=== PATIENT | male | born 1940 | race Caucasian/White ===

== ENCOUNTER 2020-01-16 09:40 | Inpatient (IN) | payer MEDICARE, BC ==
[~2020-01-16] VITALS: Ht 172.7 cm; Wt 98.7 kg
[~2020-01-16 09:40] MED LIST: ALLO100 PO; ASCO500 PO; DEMADEX PO; DIGO.125 PO; DILT180 PO; DOCU100 PO; DULERA 100 MCG/13 GM INH; FERR325 PO; FLORADIL; FLUT44OIA INH; FORM12IH INH; FURO20 PO; Florastor250 MG INH; LEVO750 PO; MONT4 PO; PSYL5.85P PO; TAZTIA XT360 MG PO; Ventolin Soln3 ML INH; WARF1 PO; WARF5 PO
[2020-01-16 10:18] LABS: BASOPHILS ABSOLUTE AUTO 0.06 K/mm3 (0.00-0.23); BASOPHILS PERCENT AUTO 0 % (0-2); EOSINOPHILS ABSOLUTE AUTO 0.02 K/mm3 (0.00-0.68); EOSINOPHILS PERCENT AUTO 0 % (0-6); Hemoglobin 14.4 g/dL (13.5-17.5); IMMATURE GRAN ABSOLUTE AUTO 0.29 K/mm3 (0.00-0.10); IMMATURE GRAN PERCENT AUTO 1 % (0-1); LYMPHOCYTES ABSOLUTE AUTO 0.47 K/mm3 (0.84-5.20); LYMPHOCYTES PERCENT AUTO 2 % (21-46); MONOCYTES ABSOLUTE AUTO 2.52 K/mm3 (0.16-1.47); MONOCYTES PERCENT AUTO 9 % (4-13); Mean Corpuscular HGB 28.7 pg (26.0-34.0); Mean Corpuscular HGB Conc 31.3 g/dL (31.5-36.5); Mean Corpuscular Volume 92 fL (80-100); Mean Platelet Volume 9.9 fL (9.1-12.4); NEUTROPHILS ABSOLUTE AUTO 25.71 K/mm3 (1.96-9.15); NEUTROPHILS PERCENT AUTO 88 % (41-73); Platelet Count 255 K/mm3 (150-400); RDW Coefficient Variation 14.6 % (11.7-14.2); RDW Standard Deviation 48.7 fL (35.1-46.3); Red Blood Cell Count 5.02 M/mm3 (4.30-5.90); White Blood Cell Count 29.07 K/mm3 (4.00-11.30)
[2020-01-16 10:39] LABS: Alanine Aminotransfer (ALT/SGP 26 U/L (12-78); Albumin, Blood 3.6 g/dL (3.4-5.0); Alk Phos 60 U/L (50-136); Anion Gap 5 mmol/L (6-16); Aspartate Aminotrans (AST/SGOT 14 U/L (12-37); Bilirubin, Total 1.2 mg/dL (0.1-1.0); Blood Urea Nitrogen 26 mg/dL (8-24); CO2, Blood 31 mmol/L (21-32); Calcium, Blood 8.7 mg/dL (8.5-10.1); Chloride, Blood 102 mmol/L (98-108); Creatinine, Blood 0.76 mg/dL (0.60-1.20); Globulin, Blood 3.6 g/dL (2.2-4.0); Glomerular Filtration Rate >60 (60-); Glucose, Blood 125 mg/dL (70-99); Potassium, Blood 5.1 mmol/L (3.5-5.5); Sodium, Blood 138 mmol/L (136-145); Total Protein, Blood 7.2 g/dL (6.4-8.2); Troponin I 0.029 ng/mL (0.000-0.040)
[2020-01-16 10:43] LABS: Base Excess Venous 5.8 mmol/L; Bicarbonate Venous 28.1 mmol/L (24.0-30.0); PCO2 Venous 56.6 mmHg (38-42); pH Blood Venous 7.35 (7.34-7.37)
[2020-01-16 10:51] LABS: Digoxin (Lanoxin) 0.79 ug/mL (0.80-2.00)
[2020-01-16 11:13] LABS: Source, Urine Clean Catch
[2020-01-16 11:25] LABS: Appearance, Urine Clear (Clear); Bilirubin, Urine Neg (Neg); Blood, Urine 1+ (Neg); Color, Urine Yellow (P-Yellow); Glucose Qualitative, Urine Neg (Neg); Ketones, Urine Neg (Neg); Leukocyte Esterase, Urine Neg (Neg); Nitrite, Urine Neg (Neg); Protein, Urine 2+ (Neg); Urobilinogen, Urine NORM (Normal)
[2020-01-16 11:35] LABS: Bacteria Not Seen /hpf; Granular Casts 0-2 /lpf (0); Mucus Light (0-Heavy); Squamous Epithelial Cells Not Seen /hpf (Few); White Blood Cells, Urine 0-2 /hpf (0-5)
[2020-01-16] MEDS ORDERED: DILTIAZEM 24HR300 M2 PO (13:56)
[2020-01-16] MEDS ORDERED: LANOXIN125 MCG PO (13:57)
[2020-01-16] MEDS ORDERED: MONT10T PO (13:57)
[2020-01-16] MEDS ORDERED: SALM50IP INH (13:57)
[2020-01-16] MEDS ORDERED: Flovent 220 Ora12 GM INH (13:57)
[2020-01-16] MEDS ORDERED: XARELTO20 M1 PO (13:57)
[2020-01-16] MEDS ORDERED: ALLOPURINOL100 M1 PO (13:58)
[2020-01-16] MEDS ORDERED: LISI20 PO (13:58)
[2020-01-16 15:33] LABS: PCO2 Arterial 48.1 mmHg (35-45); PO2 Arterial 73.7 mmHg (80-100); pH Blood Arterial 7.42 (7.35-7.45)
--- NOTE | 2020-01-16 18:19 | NUR ---
1625 RECEIVED PT TO 308 FROM ER. PT ADMITTED FOR COPD EXAC. RECEIVED REPORT FROM RIVAS RN. PT TO ER D/T INCREASING SOB. SEEN LAST WEEK IN ER AND SENT HOME WITH PREDNISONE, PER REPORT. PT PLACED ON BIPAP UPON ARRIVAL TODAY, THEN IMPROVING AND PLACED ON NC. COVID NEG. HTN IN ER, BUT HAD NOT TAKEN HIS BP MEDS TODAY. NITRO-BID AND LASIX GIVEN IN ER; BP DECREASED. PT USING URINAL AND BSC WITH 1P ASSIST IN ER. DR CALVILLO HERE TO SEE PT AFTER ARRIVAL TO . RT CALLED FOR TX, PER PT REQUEST. ECHO DONE IN PRIOR TO DINNER. PT SITTING UP TO EOB TO EAT. USING URINAL AT BS, AFTER LASIX GIVEN. IV ABX INFUSING AT THIS TIME. LUNGS T/O WITH COARSE RHONCHI AND EXP WHEEZES THRU OUT. PT IS A&O, PLEASANT AND CO-OP WITH CARE. CALL LT IN REACH.
--- NOTE | 2020-01-17 04:21 | NUR ---
MANAGER CASH SUMMARY PT HAS HAD NO NEW SYMPTOMS THIS SHIFT. HE HAS RESTED COMFORTABLY IN BED FOR MOST OF THE NIGHT. NO C/O PAIN OR NAUSEA.
[2020-01-17 05:05] LABS: BASOPHILS ABSOLUTE AUTO 0.07 K/mm3 (0.00-0.23); BASOPHILS PERCENT AUTO 0 % (0-2); EOSINOPHILS ABSOLUTE AUTO 0.03 K/mm3 (0.00-0.68); EOSINOPHILS PERCENT AUTO 0 % (0-6); Hematocrit 45.3 % (37.0-53.0); Hemoglobin 14.1 g/dL (13.5-17.5); IMMATURE GRAN ABSOLUTE AUTO 0.19 K/mm3 (0.00-0.10); IMMATURE GRAN PERCENT AUTO 1 % (0-1); LYMPHOCYTES ABSOLUTE AUTO 0.67 K/mm3 (0.84-5.20); LYMPHOCYTES PERCENT AUTO 3 % (21-46); MONOCYTES ABSOLUTE AUTO 1.72 K/mm3 (0.16-1.47); MONOCYTES PERCENT AUTO 7 % (4-13); Mean Corpuscular HGB 28.5 pg (26.0-34.0); Mean Corpuscular HGB Conc 31.1 g/dL (31.5-36.5); Mean Corpuscular Volume 92 fL (80-100); Mean Platelet Volume 10.3 fL (9.1-12.4); NEUTROPHILS ABSOLUTE AUTO 22.63 K/mm3 (1.96-9.15); NEUTROPHILS PERCENT AUTO 89 % (41-73); Platelet Count 213 K/mm3 (150-400); RDW Coefficient Variation 14.9 % (11.7-14.2); RDW Standard Deviation 49.6 fL (35.1-46.3); Red Blood Cell Count 4.94 M/mm3 (4.30-5.90); White Blood Cell Count 25.31 K/mm3 (4.00-11.30)
[2020-01-17 05:08] LABS: PCO2 Arterial 50.9 mmHg (35-45); PO2 Arterial 61.2 mmHg (80-100); pH Blood Arterial 7.43 (7.35-7.45)
[2020-01-17 05:35] LABS: Anion Gap 4 mmol/L (6-16); Blood Urea Nitrogen 26 mg/dL (8-24); Bun/Creatinine Ratio 32.1 (12.0-20.0); CO2, Blood 34 mmol/L (21-32); Chloride, Blood 102 mmol/L (98-108); Creatinine, Blood 0.81 mg/dL (0.60-1.20); Glomerular Filtration Rate >60 (60-); Glucose, Blood 106 mg/dL (70-99); Magnesium, Blood 2.2 mg/dL (1.6-2.4); Phosphorus, Blood 2.9 mg/dL (2.5-4.9); Potassium, Blood 4.6 mmol/L (3.5-5.5); Sodium, Blood 140 mmol/L (136-145)
--- NOTE | 2020-01-17 12:45 | NUR ---
SHIFT SUMMARY PT MUCH IMPROVED TODAY. LOOKING BETTER, FEELING BETTER, AND SOUNDING BETTER. LUNGS T/O DIMINISHED WITH ONLY CRACKLES AND SCATTERED EXP WHEEZES. BASELINE O2 AT 3L. PT UP TO BTHRM WITH SBA USING FWW TO GO TO BTHRM; VOIDING AND HAVING BM. PT ALSO USING URINAL AT BS AT TIMES. LASIX GIVEN. IV AND PO ABX GIVEN. PT UP TO SHOWER TODAY WELL. DR GUERIN AND DR CALVILLO BOTH IN TO SEE PT. POSSIBLE D/C EARLY TOMORROW AM. PT IS A&O, ABLE TO MAKE NEEDS KNOWN. CALL LT IN REACH.
--- NOTE | 2020-01-17 17:05 | NUR ---
Pt resting in bed upon arrival. Pt is A&O and mild dypnea noted. Engaged in therapeutic listening as Pt reports living alone with his dog. Pt reports this last August. Listened as Pt states "my dog and I are on our last leg". Pt reports plan to call meals on wheels when he gets home. Listened as Pt reports ability to activities of daily living has become more difficult. Pt reports having a daughter who lives in [place] and states he has no intention to bother him with his problems. Pt reports daughter is currently caring for her spouse who as "blood cancer". Educated on the importance of planning for the future as his chronic illnesses progress. Educated on the potential need for assistance with caregivers. Educated on the importance of routine conversations with PCP and devleoping multiple plans as disease process takes its coarse. Continued therapeutic listening as Pt discusses hobbies of reading about different religions. Pt also [facility] Continued therapeutic listening and answered questions. Pt expresses appreciation of visit and reports being open to any assistance that would be available for him. Spoke with Bedside RN Areli and discussed case. Placed Social Service Consult for assitance with any available community resources. Palliative Care will remain available.
--- NOTE | 2020-01-18 03:41 | NUR ---
PARTY BUS DRIVER SUMMARY PT A&OX4, ABLE TO MAKE NEEDS KNOWN. PLEASANT AND COOPERATIVE TO CARE. NO C/O PAIN OR ANY DISCOMFORT THIS SHIFT. PER RT STAFF, PT DESAT AND INCREASED PT'S O2 FROM 3 TO 4LPM. SOB WITH EXERTION NOTED. LS DIM WITH EXP WHEEZE ON RUL NOTED UPON SHIFT ASSESSMENT. ON TELE AFIB 104 BPM. DENIES CP / PALPITATIONS. PT DENIES N&V OR ANY GI ISSUES. POSSIBLE DC THIS AM. CALL LIGHT WITHIN REACH. WILL CONT TO MONITOR. WILL REPORT TO ONCOMING RN.
[2020-01-18 04:57] LABS: Hematocrit 42.7 % (37.0-53.0); Mean Corpuscular HGB 27.9 pg (26.0-34.0); Mean Corpuscular HGB Conc 30.4 g/dL (31.5-36.5); Mean Corpuscular Volume 92 fL (80-100); Mean Platelet Volume 10.1 fL (9.1-12.4); Platelet Count 202 K/mm3 (150-400); RDW Coefficient Variation 14.6 % (11.7-14.2); RDW Standard Deviation 49.7 fL (35.1-46.3); Red Blood Cell Count 4.66 M/mm3 (4.30-5.90); White Blood Cell Count 18.82 K/mm3 (4.00-11.30)
[2020-01-18 05:18] LABS: Albumin, Blood 2.6 g/dL (3.4-5.0); Anion Gap 7 mmol/L (6-16); Blood Urea Nitrogen 33 mg/dL (8-24); Bun/Creatinine Ratio 42.6 (12.0-20.0); CO2, Blood 32 mmol/L (21-32); Calcium, Blood 8.9 mg/dL (8.5-10.1); Chloride, Blood 101 mmol/L (98-108); Creatinine, Blood 0.77 mg/dL (0.60-1.20); Glomerular Filtration Rate >60 (60-); Glucose, Blood 103 mg/dL (70-99); Phosphorus, Blood 3.5 mg/dL (2.5-4.9); Potassium, Blood 4.1 mmol/L (3.5-5.5); Sodium, Blood 140 mmol/L (136-145)
[2020-01-18] MEDS ORDERED: AMOX-CLAV 875-1 EAC1 PO (13:06)
[2020-01-18] MEDS ORDERED: TORS10 PO (13:08)
[2020-01-18] MEDS ORDERED: VISBIOME PROBIOTIC PO (14:04)
--- NOTE | 2020-01-18 14:47 | NUR ---
PATIENT DISCHARGED TO HOME VIA [facility] IN THEIR W/C. O2 TANK TO ACCOMPANY PATIENT. IV SALINE LOCK REMOVED WITHOUT INCIDENT. PATIENT VERBALOIZED UNDERSTANDING OF D/C INSTRUCTIONS. LEFT UNIT AT 1435. NO PERSONAL BELONGINGS LEFT BEHIND IN ROOM.
== END 2020-01-18 14:41 | disposition home or self-care (01) | DRG 871 ==
LOC: ER 09:40 → MEDS 09:41
PROVIDERS: Physician Assistant; ADMIT Internal Medicine
DX: A41.9 Sepsis, unspecified organism (principal); J96.21 Acute and chronic respiratory failure with hypoxia; I50.33 Acute on chronic diastolic (congestive) heart failure; J18.9 Pneumonia, unspecified organism; Z66 Do not resuscitate; J44.0 Chronic obstructive pulmonary disease with (acute) lower respiratory infection; I48.20 Chronic atrial fibrillation, unspecified; I13.0 Hypertensive heart and chronic kidney disease with heart failure and stage 1 through stage 4 chronic kidney disease, or unspecified chronic kidney disease; K59.09 Other constipation; Z20.828 Contact with and (suspected) exposure to other viral communicable diseases; M10.9 Gout, unspecified; G47.33 Obstructive sleep apnea (adult) (pediatric); N18.9 Chronic kidney disease, unspecified; E11.22 Type 2 diabetes mellitus with diabetic chronic kidney disease; I25.10 Atherosclerotic heart disease of native coronary artery without angina pectoris; Z95.1 Presence of aortocoronary bypass graft; Z79.01 Long term (current) use of anticoagulants; Z95.2 Presence of prosthetic heart valve; Z99.81 Dependence on supplemental oxygen; Z85.46 Personal history of malignant neoplasm of prostate; Z92.3 Personal history of irradiation; Z87.891 Personal history of nicotine dependence
CPT/HCPCS: 36415; 36600; 71045; 71046; 80048; 80053; 80069; 80162; 81001; 82803; 83605; 83735; 83880; 84100; 84145; 84443; 84484; 85025; 85027; 87040; 87086; 93005; 93010; 93306; 94640; 94660; 94760; 94762; 96365-59; 96375-59; 99285-25; J0456; J0696; J1940; J7050; U0003

== ENCOUNTER 2020-06-07 08:05 | Inpatient (IN) | payer MEDICARE, BC ==
[~2020-06-07] VITALS: Ht 172.7 cm; Wt 89.1 kg
[~2020-06-07 08:05] MED LIST changes: +ALLOPURINOL100 M1 PO; +AMOCLA875 PO; +AMOX-CLAV 875-1 EAC1 PO; +DILTIAZEM 24HR300 M2 PO; +Flovent 220 Ora12 GM INH; +LANOXIN125 MCG PO; +MONT10T PO; +Prinivil10 MG PO; +SALM50IP INH; +TORS10 PO; +VISBIOME PROBIOTIC PO; +XARELTO20 M1 PO; +Zithromax250 MG PO
[2020-06-07 08:52] LABS: BASOPHILS ABSOLUTE AUTO 0.06 K/mm3 (0.00-0.23); BASOPHILS PERCENT AUTO 0 % (0-2); EOSINOPHILS ABSOLUTE AUTO 0.32 K/mm3 (0.00-0.68); EOSINOPHILS PERCENT AUTO 2 % (0-6); Hematocrit 42.4 % (37.0-53.0); Hemoglobin 13.4 g/dL (13.5-17.5); IMMATURE GRAN ABSOLUTE AUTO 0.24 K/mm3 (0.00-0.10); IMMATURE GRAN PERCENT AUTO 2 % (0-1); LYMPHOCYTES ABSOLUTE AUTO 0.52 K/mm3 (0.84-5.20); LYMPHOCYTES PERCENT AUTO 4 % (21-46); MONOCYTES PERCENT AUTO 9 % (4-13); Mean Corpuscular HGB 28.6 pg (26.0-34.0); Mean Corpuscular HGB Conc 31.6 g/dL (31.5-36.5); Mean Corpuscular Volume 91 fL (80-100); Mean Platelet Volume 10.1 fL (9.1-12.4); NEUTROPHILS ABSOLUTE AUTO 12.28 K/mm3 (1.96-9.15); NEUTROPHILS PERCENT AUTO 84 % (41-73); Platelet Count 195 K/mm3 (150-400); RDW Coefficient Variation 14.9 % (11.7-14.2); RDW Standard Deviation 48.9 fL (35.1-46.3); Red Blood Cell Count 4.68 M/mm3 (4.30-5.90); White Blood Cell Count 14.72 K/mm3 (4.00-11.30)
[2020-06-07 09:15] LABS: Alanine Aminotransfer (ALT/SGP 20 U/L (12-78); Albumin, Blood 3.3 g/dL (3.4-5.0); Albumin/Globulin Ratio 0.9 (0.8-1.8); Alk Phos 55 U/L (50-136); Anion Gap 6 mmol/L (6-16); Aspartate Aminotrans (AST/SGOT 13 U/L (12-37); Bilirubin, Total 1.7 mg/dL (0.1-1.0); Blood Urea Nitrogen 22 mg/dL (8-24); Bun/Creatinine Ratio 27.5 (12.0-20.0); CO2, Blood 31 mmol/L (21-32); Chloride, Blood 106 mmol/L (98-108); Globulin, Blood 3.8 g/dL (2.2-4.0); Glomerular Filtration Rate >60 (60-); Glucose, Blood 123 mg/dL (70-99); Potassium, Blood 4.6 mmol/L (3.5-5.5); Sodium, Blood 143 mmol/L (136-145); Total Protein, Blood 7.1 g/dL (6.4-8.2); Troponin I 0.035 ng/mL (0.000-0.040)
[2020-06-07 09:43] LABS: Base Excess Venous 7.4 mmol/L; Bicarbonate Venous 29.3 mmol/L (24.0-30.0); PCO2 Venous 52.6 mmHg (38-42); PO2 Venous 98.3 mmHg (38-42)
[2020-06-07 10:00] LABS: Influenza A, PCR NEGATIVE (NEGATIVE); Influenza B, PCR NEGATIVE (NEGATIVE); Resp Syncytial Virus, PCR NEGATIVE (NEGATIVE); SARS-Cov-2 (COVID-19) PCR, MMC NEGATIVE (NEGATIVE)
[2020-06-08 04:36] LABS: Hematocrit 42.3 % (37.0-53.0); Hemoglobin 13.4 g/dL (13.5-17.5); Mean Corpuscular HGB 28.7 pg (26.0-34.0); Mean Corpuscular HGB Conc 31.7 g/dL (31.5-36.5); Mean Corpuscular Volume 91 fL (80-100); Mean Platelet Volume 10.6 fL (9.1-12.4); Platelet Count 195 K/mm3 (150-400); RDW Coefficient Variation 14.6 % (11.7-14.2); RDW Standard Deviation 48.1 fL (35.1-46.3); Red Blood Cell Count 4.67 M/mm3 (4.30-5.90); White Blood Cell Count 13.77 K/mm3 (4.00-11.30)
--- NOTE | 2020-06-08 04:37 | NUR ---
SHIFT SUMMARY ASSUMED CARE OF PT AT 1900. PT IS A/OX4. HEART SOUNDS IRREGULAR, TELE SHOWS AFIB. LUNG SOUNDS VERY COURSE, PT ON 3L NC, RT CONSULTED WITH CARE, PT WORE CPAP MOST OF THE NIGHT. PT IS A 1P MINIMAL ASSIST TO BATHROOM. PT WAS INCONTINENT OF STOOL THIS SHIFT. PT STATES THIS IS HIS FIRST BOUGHT OF DIARRHEA, NOT OTHER EVENTS. PT USED URINAL T/O THE NIGHT. PERIAREA IS RED. CALL LIGHT IN REACH, BED IN LOWEST POSTION.
[2020-06-08 05:14] LABS: Anion Gap 6 mmol/L (6-16); Blood Urea Nitrogen 28 mg/dL (8-24); Bun/Creatinine Ratio 35.9 (12.0-20.0); CO2, Blood 29 mmol/L (21-32); Chloride, Blood 106 mmol/L (98-108); Creatinine, Blood 0.78 mg/dL (0.60-1.20); Glomerular Filtration Rate >60 (60-); Glucose, Blood 108 mg/dL (70-99); Potassium, Blood 4.3 mmol/L (3.5-5.5); Sodium, Blood 141 mmol/L (136-145)
--- NOTE | 2020-06-08 11:49 | NUR ---
Spiritual care visit conducted. Patient is sitting on a chair and alert. Patient talks about his medical issues and the paln to possibly have him DC tomorrow. Patient begins talking about how he is alone, his spouse and his dog and he is trying to cope with it all, when a friend called and I leave to allow him to talk with his friend. I will continue to remain available to patient and family.
--- NOTE | 2020-06-08 18:43 | NUR ---
PATIENT HAD A GOOD DAY. A/OX3, CAN BE FORGETFUL AT TIMES. 3LO2 TO MAINTAIN SATS WHICH IS HIS BASELINE. LUNGS COARSE THROUGHOUT. VSS. UP WITH FWW AND SBA. USES URINAL TO VOID. TOLERATING CARIAC DIET. DENIES ANY PAIN OR DISCOMFORT. SPOKE WITH DAUGHTER TODAY WHO HAD SOME CONCERNS ABOUT PATIENT RETURNING HOME WITHOUT ANYONE CHECKING ON HIM. SHE MENTIONED THAT SHE WOULD LIKE HIM TO HAVE HOME HEALTH IF POSSIBLE. NO ACUTE CHANGES THIS SHIFT. COOPERATIVE WITH CARE AND ABLE TO MAKE NEEDS KNOWN.
--- NOTE | 2020-06-08 22:24 | NUR ---
ASSUMPTION OF CARE. AOX3, FORGETFUL. DENIES PAIN OR DISCOMFORT. LUNG SOUNDS ARE VERY COURSE, BUT HE IS UNABLE TO COUGH OUT ANY SECREATIONS. COUGH IS MOIST. ENCOURAGED FLUTTER AND INSPIROMETER. CONTINUOUS PULSE OX STATES SATS GREATER >90% PULSE TENDS TO BE TACHY ON TELE. NO CHEST PAIN NOTED. NO EDEMA. PM MEDS GIVEN. ONLY URINATED 50CC OF URINE, DARK ORANGE. ENCOURAGED FLUIDS. BED ALARM ON. WILL CONTINUE TO MONITOR. CALL LIGHT IN REACH.
[2020-06-09 05:18] LABS: BASOPHILS ABSOLUTE AUTO 0.02 K/mm3 (0.00-0.23); BASOPHILS PERCENT AUTO 0 % (0-2); EOSINOPHILS ABSOLUTE AUTO 0.01 K/mm3 (0.00-0.68); EOSINOPHILS PERCENT AUTO 0 % (0-6); Hematocrit 43.7 % (37.0-53.0); Hemoglobin 13.6 g/dL (13.5-17.5); IMMATURE GRAN ABSOLUTE AUTO 0.21 K/mm3 (0.00-0.10); IMMATURE GRAN PERCENT AUTO 2 % (0-1); LYMPHOCYTES ABSOLUTE AUTO 0.52 K/mm3 (0.84-5.20); LYMPHOCYTES PERCENT AUTO 4 % (21-46); MONOCYTES ABSOLUTE AUTO 0.58 K/mm3 (0.16-1.47); MONOCYTES PERCENT AUTO 5 % (4-13); Mean Corpuscular HGB Conc 31.1 g/dL (31.5-36.5); Mean Corpuscular Volume 90 fL (80-100); Mean Platelet Volume 10.7 fL (9.1-12.4); NEUTROPHILS ABSOLUTE AUTO 10.48 K/mm3 (1.96-9.15); NEUTROPHILS PERCENT AUTO 89 % (41-73); Platelet Count 208 K/mm3 (150-400); RDW Coefficient Variation 14.2 % (11.7-14.2); RDW Standard Deviation 46.7 fL (35.1-46.3); Red Blood Cell Count 4.85 M/mm3 (4.30-5.90); White Blood Cell Count 11.82 K/mm3 (4.00-11.30)
--- NOTE | 2020-06-09 06:05 | NUR ---
SHIFT SUMMARY: AOX2, CONFUSION THAT INCREASES AT NIGHT. EASILY ANXIOUS. LUNG SOUNDS VERY COURSE T/O, COUGH IS MOIST BUT NON-PRODUCTIVE. USES INSPIROMETER AND FLUTTER VALVE WHEN REMINDED. SOB WITH EXERTION. SATS ON 3 LITERS >90% PER CONTINUOUS BIOX, USES CPAP AT NIGHT WITH BLEED IN. DOES COMPENSATE WITH EXERTION EVIDENCE BY TACHYCARDIA. HAD DIFFICULTY SLEEPING TONIGHT, JUST BEING ANXIOUS. HE HAD TO SLEEP IN RECLIENER TO HELP PREVENT ORTHOPNEA. VS WNL, OTHER THEN TACHYCARDIA. MILD EDEMA TO BLE. URINE OUTPUT VERY LITTLE AT A TIME, CAN BENIFIT FROM FLOMAX. DENIED ANY PAIN. USES CALL LIGHT APPROPRIATLY. BED ALARM ON AND CALL LIGHT IN REACH.
[2020-06-09] MEDS ORDERED: VISBIOME 112.51 EACH PO (12:31)
[2020-06-09] MEDS ORDERED: METO25ER PO (12:32)
[2020-06-09] MEDS ORDERED: GUAI600T33 PO (12:32)
[2020-06-09] MEDS ORDERED: PRED20 PO (12:33)
--- NOTE | 2020-06-09 17:10 | NUR ---
PT AOX4 AND COOPERATIVE OF CARE. PT DENIED PAIN AND WAS A ONE PERSON STANDBY WITH WALKER TO RESTROOM. PT DISCHARGED AT 1700 WITH ALL PAPERWORK SIGNED AND EDCUATIONAL MATERIAL SENT. NO DISTRESS NOTED. PT HAD [facility] PICK HIM UP IN WHEEL CHAIR TO TAKE HIM HOME TO [facility]. ALL PERSONAL MATERIAL COLLECTED AND TAKEN WITH PT.
== END 2020-06-09 17:09 | disposition home or self-care (01) | DRG 871 ==
LOC: ER 08:05 → MEDS 10:50
PROVIDERS: Emergency Medicine; Internal Medicine; Nurse Practitioner Acute Care; ADMIT Internal Medicine
DX: A41.9 Sepsis, unspecified organism (principal); J18.9 Pneumonia, unspecified organism; J96.21 Acute and chronic respiratory failure with hypoxia; I50.32 Chronic diastolic (congestive) heart failure; J44.0 Chronic obstructive pulmonary disease with (acute) lower respiratory infection; I48.20 Chronic atrial fibrillation, unspecified; I13.0 Hypertensive heart and chronic kidney disease with heart failure and stage 1 through stage 4 chronic kidney disease, or unspecified chronic kidney disease; G47.33 Obstructive sleep apnea (adult) (pediatric); I25.10 Atherosclerotic heart disease of native coronary artery without angina pectoris; Z20.822 Contact with and (suspected) exposure to COVID-19; Z66 Do not resuscitate; E11.22 Type 2 diabetes mellitus with diabetic chronic kidney disease; N18.9 Chronic kidney disease, unspecified; M10.9 Gout, unspecified; Z99.81 Dependence on supplemental oxygen; Z95.1 Presence of aortocoronary bypass graft; Z95.2 Presence of prosthetic heart valve; Z79.01 Long term (current) use of anticoagulants; Z79.51 Long term (current) use of inhaled steroids; Z85.46 Personal history of malignant neoplasm of prostate; Z85.038 Personal history of other malignant neoplasm of large intestine; Z92.3 Personal history of irradiation
CPT/HCPCS: 0241U; 36415; 71045; 80048; 80053; 82803; 83605; 83880; 84145; 84484; 85025; 85027; 87040; 93005; 93010; 94640; 94660; 94667; 94762; 96365; 99284-25; 99285-25; A9270; J0696; J7050; J7512

== ENCOUNTER 2020-06-13 10:44 | Emergency (ER) | payer OTHER, MEDICARE, BC ==
[~2020-06-13] VITALS: Ht 167.6 cm; Wt 86.2 kg
[~2020-06-13 10:44] MED LIST changes: +GUAI600T33 PO; +METO25ER PO; +PRED20 PO; +VISBIOME 112.51 EACH PO
[2020-06-13 11:23] LABS: BASOPHILS ABSOLUTE AUTO 0.05 K/mm3 (0.00-0.23); BASOPHILS PERCENT AUTO 0 % (0-2); EOSINOPHILS ABSOLUTE AUTO 0.01 K/mm3 (0.00-0.68); EOSINOPHILS PERCENT AUTO 0 % (0-6); Hemoglobin 14.6 g/dL (13.5-17.5); IMMATURE GRAN PERCENT AUTO 2 % (0-1); LYMPHOCYTES ABSOLUTE AUTO 0.58 K/mm3 (0.84-5.20); LYMPHOCYTES PERCENT AUTO 3 % (21-46); MONOCYTES ABSOLUTE AUTO 1.66 K/mm3 (0.16-1.47); MONOCYTES PERCENT AUTO 9 % (4-13); Mean Corpuscular HGB 28.2 pg (26.0-34.0); Mean Corpuscular HGB Conc 31.1 g/dL (31.5-36.5); Mean Corpuscular Volume 91 fL (80-100); Mean Platelet Volume 10.5 fL (9.1-12.4); NEUTROPHILS ABSOLUTE AUTO 16.08 K/mm3 (1.96-9.15); NEUTROPHILS PERCENT AUTO 86 % (41-73); Platelet Count 254 K/mm3 (150-400); RDW Coefficient Variation 14.6 % (11.7-14.2); RDW Standard Deviation 48.1 fL (35.1-46.3); Red Blood Cell Count 5.18 M/mm3 (4.30-5.90); White Blood Cell Count 18.68 K/mm3 (4.00-11.30)
[2020-06-13 11:32] LABS: Alanine Aminotransfer (ALT/SGP 47 U/L (12-78); Albumin, Blood 3.5 g/dL (3.4-5.0); Albumin/Globulin Ratio 0.9 (0.8-1.8); Alk Phos 58 U/L (50-136); Anion Gap 4 mmol/L (6-16); Aspartate Aminotrans (AST/SGOT 45 U/L (12-37); Bilirubin, Total 1.3 mg/dL (0.1-1.0); Blood Urea Nitrogen 38 mg/dL (8-24); Bun/Creatinine Ratio 40.3 (12.0-20.0); CO2, Blood 33 mmol/L (21-32); Chloride, Blood 109 mmol/L (98-108); Creatinine, Blood 0.94 mg/dL (0.60-1.20); Globulin, Blood 3.7 g/dL (2.2-4.0); Glomerular Filtration Rate >60 (60-); Glucose, Blood 128 mg/dL (70-99); Potassium, Blood 4.4 mmol/L (3.5-5.5); Sodium, Blood 146 mmol/L (136-145); Total Protein, Blood 7.2 g/dL (6.4-8.2)
[2020-06-13 12:19] LABS: Creatine Kinase MB 7.4 ng/mL (0.0-3.6)
[2020-06-13 12:23] LABS: Creatine Kinase MB Index 0.6 (0.0-4.0)
[2020-06-13] MEDS ORDERED: DILTIAZEM 24HR300 M2 PO (14:13)
[2020-06-13] MEDS ORDERED: SPIRIVA RESPIMAT4 G3 INH (14:13)
[2020-06-13 15:03] LABS: Bicarbonate Venous 28.3 mmol/L (24.0-30.0); PCO2 Venous 70.9 mmHg (38-42); pH Blood Venous 7.29 (7.34-7.37)
== END 2020-06-13 17:09 | disposition short-term general hospital (02) ==
LOC: ER 10:44
PROVIDERS: Emergency Medicine; Nurse Practitioner Acute Care
DX: T79.6XXA Traumatic ischemia of muscle, initial encounter (principal); M25.551 Pain in right hip; J44.9 Chronic obstructive pulmonary disease, unspecified; I48.91 Unspecified atrial fibrillation; I11.0 Hypertensive heart disease with heart failure; I50.9 Heart failure, unspecified; Z79.899 Other long term (current) drug therapy; W18.30XA Fall on same level, unspecified, initial encounter
CPT/HCPCS: 36415; 70450; 71045; 73502; 80053; 82550; 82553; 82803; 83880; 84550; 85025; 93005; 93010; 94640; 96374; 99285-25; A9270; J1940; J7030

== ENCOUNTER 2021-08-04 19:13 | Inpatient (IN) | payer OTHER, BC ==
[~2021-08-04] VITALS: Ht 172.7 cm; Wt 81.9 kg
[~2021-08-04 19:13] MED LIST changes: +SPIRIVA RESPIMAT4 G3 INH
[2021-08-04] MEDS ORDERED: ALLOPURINOL100 M1 PO (19:39)
[2021-08-04] MEDS ORDERED: FURO20 (19:39)
[2021-08-04] MEDS ORDERED: METF500 (19:40)
[2021-08-04 22:21] LABS: Source, Urine Straight Cath
[2021-08-04 22:26] LABS: BASOPHILS ABSOLUTE AUTO 0.04 K/mm3 (0.00-0.23); BASOPHILS PERCENT AUTO 0 % (0-2); EOSINOPHILS PERCENT AUTO 0 % (0-6); Hematocrit 41.5 % (37.0-53.0); Hemoglobin 12.8 g/dL (13.5-17.5); IMMATURE GRAN ABSOLUTE AUTO 0.08 K/mm3 (0.00-0.10); IMMATURE GRAN PERCENT AUTO 0 % (0-1); LYMPHOCYTES ABSOLUTE AUTO 0.86 K/mm3 (0.84-5.20); LYMPHOCYTES PERCENT AUTO 4 % (21-46); MONOCYTES ABSOLUTE AUTO 1.55 K/mm3 (0.16-1.47); MONOCYTES PERCENT AUTO 8 % (4-13); Mean Corpuscular HGB 27.7 pg (26.0-34.0); Mean Corpuscular HGB Conc 30.8 g/dL (31.5-36.5); Mean Corpuscular Volume 90 fL (80-100); Mean Platelet Volume 10.7 fL (9.1-12.4); NEUTROPHILS PERCENT AUTO 87 % (41-73); Platelet Count 212 K/mm3 (150-400); RDW Coefficient Variation 14.2 % (11.7-14.2); RDW Standard Deviation 46.6 fL (35.1-46.3); Red Blood Cell Count 4.62 M/mm3 (4.30-5.90); White Blood Cell Count 20.13 K/mm3 (4.00-11.30)
[2021-08-04 22:28] LABS: Bilirubin, Urine Neg (Neg); Blood, Urine 4+ (Neg); Glucose Qualitative, Urine Neg (Neg); Ketones, Urine 1+ (Neg); Leukocyte Esterase, Urine Neg (Neg); Nitrite, Urine Neg (Neg); Protein, Urine 3+ (Neg); Specific Gravity, Urine 1.025 (1.003-1.022); Urobilinogen, Urine 1+ (Normal)
[2021-08-04 22:31] LABS: Base Excess Venous 3.9 mmol/L; Bicarbonate Venous 27.4 mmol/L (24.0-30.0); PCO2 Venous 43.6 mmHg (38-42); PO2 Venous 107 mmHg (38-42); pH Blood Venous 7.42 (7.34-7.37)
[2021-08-04 22:39] LABS: Amorphous Mod (0-Heavy); Appearance, Urine Hazy (Clear); Bacteria Few /hpf; Color, Urine Yellow (P-Yellow); Mucus Mod (0-Heavy); Squamous Epithelial Cells Few /hpf (Few); White Blood Cells, Urine Rare /hpf (0-5)
[2021-08-04 23:03] LABS: Influenza A, PCR NEGATIVE (NEGATIVE); Influenza B, PCR NEGATIVE (NEGATIVE); Resp Syncytial Virus, PCR NEGATIVE (NEGATIVE); SARS-Cov-2 (COVID-19) PCR, MMC NEGATIVE (NEGATIVE)
[2021-08-04 23:16] LABS: Alanine Aminotransfer (ALT/SGP 18 U/L (12-78); Albumin, Blood 3.4 g/dL (3.4-5.0); Albumin/Globulin Ratio 0.9 (0.8-1.8); Alk Phos 52 U/L (50-136); Anion Gap 6 mmol/L (6-16); Aspartate Aminotrans (AST/SGOT 33 U/L (12-37); Bilirubin, Total 1.3 mg/dL (0.1-1.0); Blood Urea Nitrogen 40 mg/dL (8-24); Bun/Creatinine Ratio 38.1 (12.0-20.0); CO2, Blood 29 mmol/L (21-32); Calcium, Blood 9.5 mg/dL (8.5-10.1); Chloride, Blood 110 mmol/L (98-108); Creatinine, Blood 1.05 mg/dL (0.60-1.20); Digoxin (Lanoxin) 0.64 ug/mL (0.80-2.00); Globulin, Blood 3.6 g/dL (2.2-4.0); Glomerular Filtration Rate 72 (60-); Glucose, Blood 107 mg/dL (70-99); Magnesium, Blood 2.6 mg/dL (1.6-2.4); Potassium, Blood 4.5 mmol/L (3.5-5.5); Sodium, Blood 145 mmol/L (136-145)
[2021-08-05 05:09] LABS: BASOPHILS ABSOLUTE AUTO 0.05 K/mm3 (0.00-0.23); BASOPHILS PERCENT AUTO 0 % (0-2); EOSINOPHILS ABSOLUTE AUTO 0.09 K/mm3 (0.00-0.68); EOSINOPHILS PERCENT AUTO 1 % (0-6); Hematocrit 40.4 % (37.0-53.0); Hemoglobin 12.2 g/dL (13.5-17.5); IMMATURE GRAN ABSOLUTE AUTO 0.07 K/mm3 (0.00-0.10); IMMATURE GRAN PERCENT AUTO 0 % (0-1); LYMPHOCYTES ABSOLUTE AUTO 1.08 K/mm3 (0.84-5.20); LYMPHOCYTES PERCENT AUTO 7 % (21-46); MONOCYTES ABSOLUTE AUTO 1.53 K/mm3 (0.16-1.47); MONOCYTES PERCENT AUTO 9 % (4-13); Mean Corpuscular HGB 27.4 pg (26.0-34.0); Mean Corpuscular HGB Conc 30.2 g/dL (31.5-36.5); Mean Corpuscular Volume 91 fL (80-100); Mean Platelet Volume 10.5 fL (9.1-12.4); NEUTROPHILS ABSOLUTE AUTO 13.61 K/mm3 (1.96-9.15); NEUTROPHILS PERCENT AUTO 83 % (41-73); Platelet Count 186 K/mm3 (150-400); RDW Coefficient Variation 14.2 % (11.7-14.2); RDW Standard Deviation 47.7 fL (35.1-46.3); Red Blood Cell Count 4.45 M/mm3 (4.30-5.90); White Blood Cell Count 16.43 K/mm3 (4.00-11.30)
--- NOTE | 2021-08-05 05:16 | NUR ---
PT UP TO FLOOR ONE ASSIST TO BED. PT VERY WEAK AND UNSTEADY ON HIS FEET. SOB WITH EXERTION LUNGS WET COARSE WHEEZY. RT IN ROOM GIVING BREATHING TX. PT IS RECEPTIVE AND COMPLIANT WITH CARE.
[2021-08-05 05:54] LABS: Albumin, Blood 3.1 g/dL (3.4-5.0); Albumin/Globulin Ratio 0.9 (0.8-1.8); Bilirubin, Total 0.8 mg/dL (0.1-1.0); Bun/Creatinine Ratio 42.3 (12.0-20.0); Calcium, Blood 8.6 mg/dL (8.5-10.1); Creatinine, Blood 0.95 mg/dL (0.60-1.20); Globulin, Blood 3.6 g/dL (2.2-4.0); Potassium, Blood 4.5 mmol/L (3.5-5.5); Total Protein, Blood 6.7 g/dL (6.4-8.2)
--- NOTE | 2021-08-05 07:30 | NUR ---
ASSUMED CARE: PT RESTING QUIETLY, NSR ON TELE. 3L O2 VIA NC. NO ACUTE NEEDS AT THIS TIME.
--- NOTE | 2021-08-05 10:46 | NUR ---
PT'S DAUGHTER CALLED FOR UPDATE THIS AM AND WAS TOLD BY NIGHT STAFF THAT PT HAD NSTEMI AND WAS GOING TO HAVE CARDIOLOGY CONSULTED. DISCUSSED WITH DR MIRANDA WHO STATED IT WAS CHF EXACERBATION INSTEAD. THIS WAS EXPLAINED TO PTS DAUGHTER.
--- NOTE | 2021-08-05 17:42 | NUR ---
SHIFT SUMMARY: PT UP IN CHAIR MAJORITY OF SHIFT AFTER WORKING WITH PT/OT. UPDATE GIVEN TO DAUGHTER THIS AM. CPAP ORDERED AFTER DAUGHTER STATED PT'S HISTORY. PLAN IS FOR DAY TO DAY ASSESSMENT TO DETERMINE SAFE DISCHARGE TIMING. NO ACUTE NEEDS OR CONCERNS AT THIS TIME.
[2021-08-06 04:48] LABS: BASOPHILS ABSOLUTE AUTO 0.04 K/mm3 (0.00-0.23); BASOPHILS PERCENT AUTO 0 % (0-2); EOSINOPHILS ABSOLUTE AUTO 0.29 K/mm3 (0.00-0.68); EOSINOPHILS PERCENT AUTO 2 % (0-6); Hematocrit 38.1 % (37.0-53.0); Hemoglobin 11.4 g/dL (13.5-17.5); IMMATURE GRAN ABSOLUTE AUTO 0.14 K/mm3 (0.00-0.10); IMMATURE GRAN PERCENT AUTO 1 % (0-1); LYMPHOCYTES ABSOLUTE AUTO 0.86 K/mm3 (0.84-5.20); LYMPHOCYTES PERCENT AUTO 7 % (21-46); MONOCYTES PERCENT AUTO 10 % (4-13); Mean Corpuscular HGB 27.1 pg (26.0-34.0); Mean Corpuscular HGB Conc 29.9 g/dL (31.5-36.5); Mean Corpuscular Volume 91 fL (80-100); Mean Platelet Volume 10.7 fL (9.1-12.4); NEUTROPHILS ABSOLUTE AUTO 9.37 K/mm3 (1.96-9.15); NEUTROPHILS PERCENT AUTO 79 % (41-73); Platelet Count 193 K/mm3 (150-400); RDW Coefficient Variation 14.2 % (11.7-14.2); RDW Standard Deviation 47.2 fL (35.1-46.3)
[2021-08-06 05:05] LABS: Albumin, Blood 2.8 g/dL (3.4-5.0); Anion Gap 6 mmol/L (6-16); Blood Urea Nitrogen 63 mg/dL (8-24); Bun/Creatinine Ratio 39.6 (12.0-20.0); CO2, Blood 29 mmol/L (21-32); Calcium, Blood 8.3 mg/dL (8.5-10.1); Chloride, Blood 104 mmol/L (98-108); Creatinine, Blood 1.59 mg/dL (0.60-1.20); Glomerular Filtration Rate 44 (60-); Glucose, Blood 106 mg/dL (70-99); Phosphorus, Blood 5.6 mg/dL (2.5-4.9); Potassium, Blood 5.1 mmol/L (3.5-5.5); Sodium, Blood 139 mmol/L (136-145)
--- NOTE | 2021-08-06 06:05 | NUR ---
SHIFT SUMMARY NOC: PT HAD HYPOTENSION ISSUES AT BEGINNING OF SHIFT. PT BLOOD PRESSURE 74/42 ON FIRST VITALS SIGN CHECK. MD CALLED NEW ORDERS FOR NS 500 ML BOLUS. RECHECK BP 78/47 MD PAGED NEW ORDERS NS 1000 ML BOLUS AND MIDODRINE 10 MG ONCE GIVEN. MORNING BP 92/49. PT POOR HISTORIAN ON HOME MEDICATIONS. PT STATES HE TAKES PILL FOR GOUT, DIGOXIN, AND PILL FOR KIDNEYS AT HOME, SINGULAR AT BEDTIME. MD CALLED AND ASKED TO REVIEW MEDICATION LIST. PT UP TO CHAIR THIS MORNING BY 2 PERSON ASSIST WITH FWW.
--- NOTE | 2021-08-06 11:04 | NUR ---
PT COOPERATIVE AND PLEASANT. A/OX3. FORGETS LIMITATIONS. ON TELE. AFIB AT 56 PER TECH. NO MURMUR NOTED. ON 3.5L VIA NASAL CANNULA. BREATHING IS EASY AND UNLABORED. WHEEZING. COUGH PRESENT. SOME SPUTUM PRODUCTION. THICK AND GREEN IN COLOR. PT AMBULATES WITH FWW AND GAITBELT. TAUGHT PT TO USE INCENTIVE SPIROMETER. 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 PT AGREED TO USE PICKLE WELL. HELD MOST CARDIAC MEDICATIONS THIS MORNING SYSTOLIC WAS BELOW 100. WILL CONTINUE TO MONITOR. PT STATES HE LOST HIS RING TODAY. FOUND RING FOR PT. PUT IN URINE SPECIMEN CUP WITH PT LABEL. GAVE URINE SPECIMEN CUP TO PT WITH RING INSIDE. CALL LIGHT IN REACH, CALLS KARON.
--- NOTE | 2021-08-06 11:07 | NUR ---
DR MIRANDA IN TO SEE PT. OKAY D/C AC/HS GLUCOSE CKS, OKAY D/C INSULIN. GIVE I/S AND PICKLE FOR BREATHING
--- NOTE | 2021-08-06 17:55 | NUR ---
PT CANNOT REMEMBER THE MEDICATIONS HE TAKES AT HOME DAILY. STATES HE TAKES A KIDNEY PILL, A BLOOD PRESSURE PILL AND A PILL FOR GOUT. PT CANNOT RECALL MEDICATION NAMES. PT STATES HE DOESNT WANT TO TAKE XARELTO BECAUSE IT CAUSES HIM TO HAVE SOB. HE THEN STATED IT CAUSES HIM TO HAVE WEAKNESS IN HIS LEGS. I REVIEWED MEDICATION WITH THE PT AND REASSURED HIM AND EDUCATED HIM THAT THE BLOOD THINNER SHOULD NOT CAUSE WEAKNESS IN HIS LEGS OR AFFECT HIM TO HAVE SOB. PT WAS GIVEN EDUCATION FOR THE REASONING BEHIND BLOOD THINNERS. HE WAS ALSO TOLD THAT HE HAS A RIGHT TO REFUSE THE MEDICATION IF HE WAS NOT COMFORTBALE TAKING THE MEDICATION. PT HAS HX OF AFIB AND DECREASED ACTIVITY WAS EXPLAINED TO PT. PT WAS SKEPTICAL ABOUT TAKING MEDICATION. PT CHOSE TO TAKE MEDICATION. PT STATED HE THOUGHT HE WAS ADMITTED TO THE HOSPITAL FOR TAKING THIS MEDICATION. EDUCATED PT THAT HE WAS ADMITTED FOR PNUEMONIA, SEPSIS AND NSTEMI. BED IN LOW POSITION, CALL LIGHT IN REACH, CALLS APPROPRIATELY.
--- NOTE | 2021-08-06 18:22 | NUR ---
PT DAUGHTER LEDA CALLED STATES HAS TALKED TO PT ALSO STATES PT SHOULD NOT BE ON BLOOD THINNERS DUE TO A FALL LAST YEAR. SHE STATES [facility] TOLD [facility] NOT TO [facility] BLOOD THINNERS RELATED TO THE FALL AND POSSIBLE BRAIN BLEED. MILA SPOKE WITH DAUGHTER. HER CONCERN WAS RELAYED TO DR MIRANDA. RUBEN STATES WILL CALL DAUGHTER AND WILL D/C XARELTO AND PLACE IN ALLERGY LIST. FOR FUTURE REFERENCE.
--- NOTE | 2021-08-06 18:29 | NUR ---
PT CONFUSED ABOUT MEDS. THINKS ONLY TAKES 3 MEDS. CANNOT PUT NAMES ON SUCH. DISCUSSED NEW MEDS SINCE ADMIT ORDERED BY DOCTORS. CONFUSED ON XARELTO, EXPLAINED IS A BLOOD THINNER, OFTEN GIVEN FOR PTS WITH AFIB TO PREVENT BLOOD CLOTS. PT HESITANT AND SOME CONFUSED ABOUT, BUT DID TAKE. DAUGHTER DID CALL BACK LATER, AFTER SPEAKING ABOUT THIS TO HIM. WAS PRETTY CONCERNED. DID REQUEST WE TAKE OFF BLOOD THINNERS HAD FALL LAST YEAR, DR AT [facility] CONCERNED ABOUT BRAIN BLEED. REQUEST DR CALL HER. I CALLED DR MIRANDA. GAVE HER UPDATE. SHE ASKED WE D/C AND PLACE AN ADVERSE REACTION, DONE. SHE STATES WILL CALL PT DAUGHTER.
--- NOTE | 2021-08-06 18:29 | NUR ---
PT COOPERATIVE WITH CARE. A/O X2-3. DENIES PAIN. ON TELE. PER TELE NSR IN 50'S. NO MURMUR NOTED. WHEEZING HEARD THORUGHOUT LUNGS. ON 3.5L VIA NASAL CANNULA. PT AMBULATES WITH FWW, GAITBELT AND +1 ASSIST TO BATHROOM. PT STATES NO BM TODAY. ACHS D/C TODAY. BED IN LOW POSITION, CALL LIGHT IN REACH, CALLS APPROPRIATLEY.
--- NOTE | 2021-08-06 18:37 | NUR ---
AGREE WITH STUDENT NOTES AND DOCUMENTATIONS
[2021-08-07 08:01] LABS: BASOPHILS ABSOLUTE AUTO 0.03 K/mm3 (0.00-0.23); BASOPHILS PERCENT AUTO 0 % (0-2); EOSINOPHILS ABSOLUTE AUTO 0.26 K/mm3 (0.00-0.68); EOSINOPHILS PERCENT AUTO 3 % (0-6); Hematocrit 39.2 % (37.0-53.0); Hemoglobin 11.8 g/dL (13.5-17.5); IMMATURE GRAN ABSOLUTE AUTO 0.08 K/mm3 (0.00-0.10); IMMATURE GRAN PERCENT AUTO 1 % (0-1); LYMPHOCYTES ABSOLUTE AUTO 0.82 K/mm3 (0.84-5.20); LYMPHOCYTES PERCENT AUTO 9 % (21-46); MONOCYTES ABSOLUTE AUTO 0.84 K/mm3 (0.16-1.47); MONOCYTES PERCENT AUTO 9 % (4-13); Mean Corpuscular HGB 27.3 pg (26.0-34.0); Mean Corpuscular HGB Conc 30.1 g/dL (31.5-36.5); Mean Corpuscular Volume 91 fL (80-100); Mean Platelet Volume 10.8 fL (9.1-12.4); NEUTROPHILS ABSOLUTE AUTO 7.33 K/mm3 (1.96-9.15); NEUTROPHILS PERCENT AUTO 78 % (41-73); Platelet Count 170 K/mm3 (150-400); RDW Coefficient Variation 13.7 % (11.7-14.2); RDW Standard Deviation 45.5 fL (35.1-46.3); Red Blood Cell Count 4.32 M/mm3 (4.30-5.90); White Blood Cell Count 9.36 K/mm3 (4.00-11.30)
[2021-08-07 08:13] LABS: Anion Gap 0 mmol/L (6-16); Blood Urea Nitrogen 61 mg/dL (8-24); Bun/Creatinine Ratio 68.2 (12.0-20.0); CO2, Blood 30 mmol/L (21-32); Calcium, Blood 8.8 mg/dL (8.5-10.1); Chloride, Blood 107 mmol/L (98-108); Glomerular Filtration Rate 87 (60-); Glucose, Blood 102 mg/dL (70-99); Phosphorus, Blood 3.6 mg/dL (2.5-4.9); Potassium, Blood 5.3 mmol/L (3.5-5.5); Sodium, Blood 137 mmol/L (136-145)
--- NOTE | 2021-08-07 16:51 | NUR ---
SHIFT SUMMARY PATIENT IS ALERT AND ORIENTED X3. PATIENT HAS USED A FWW TO BATHROOM. PATIENT HAS HAD NO ACUTE EVENTS THIS SHIFT. VITAL SIGNS REVIEWED. PATIENT IS STILL ON 3L NC AND SATTING ABOVE 95 THIS SHIFT. PATIENT HAS HAD NO COMPLAINTS OF NAUSEA, VOMITTING, PAIN OR SOB THIS SHIFT. BED IN LOCKED AND LOWEST POSITION. CALL LIGHT IN PLACE. WILL MONITOR UNTIL SHIFT CHANGE.
--- NOTE | 2021-08-08 05:05 | NUR ---
SHIFT SUMMARY: PATIENT MAINTAINS SATS 96-99% ON 3.5LNC AND CPAP WITH A 7L BLEED IN. PATIENT TOLERATED CPAP UNTIL 0430. NO REPORTS OF PAIN OR DISCOMFORT. NO ACUTE CHANGES.
[2021-08-08 05:51] LABS: Albumin, Blood 2.9 g/dL (3.4-5.0); Anion Gap 2 mmol/L (6-16); Blood Urea Nitrogen 51 mg/dL (8-24); Bun/Creatinine Ratio 59.9 (12.0-20.0); CO2, Blood 30 mmol/L (21-32); Calcium, Blood 8.8 mg/dL (8.5-10.1); Chloride, Blood 106 mmol/L (98-108); Creatinine, Blood 0.85 mg/dL (0.60-1.20); Glomerular Filtration Rate 88 (60-); Glucose, Blood 104 mg/dL (70-99); Potassium, Blood 5.5 mmol/L (3.5-5.5); Sodium, Blood 138 mmol/L (136-145)
[2021-08-08] MEDS ORDERED: AZIT250 PO (11:47)
[2021-08-08] MEDS ORDERED: VISBIOME 112.51 EACH PO (11:47)
[2021-08-08] MEDS ORDERED: CEFP200 PO (11:48)
== END 2021-08-08 14:05 | disposition home health service (06) | DRG 871 ==
LOC: ER 19:13 → MEDS 08-05 00:53 → ER 08-05 00:53 → MEDS 08-05 01:20
PROVIDERS: Internal Medicine; Student in an Organized Health Care Education/Training Program; ADMIT Internal Medicine
PROC: 3E03329 Introduction of Other Anti-infective into Peripheral Vein, Percutaneous Approach (ICD-10-PCS; principal; 2021-08-06)
PROC: 5A09357 Assistance with Respiratory Ventilation, Less than 24 Consecutive Hours, Continuous Positive Airway Pressure (ICD-10-PCS; 2021-08-08)
DX: A41.9 Sepsis, unspecified organism (principal); I21.4 Non-ST elevation (NSTEMI) myocardial infarction; I50.33 Acute on chronic diastolic (congestive) heart failure; J18.9 Pneumonia, unspecified organism; J96.21 Acute and chronic respiratory failure with hypoxia; Z66 Do not resuscitate; N17.9 Acute kidney failure, unspecified; J44.0 Chronic obstructive pulmonary disease with (acute) lower respiratory infection; Z20.822 Contact with and (suspected) exposure to COVID-19; J20.9 Acute bronchitis, unspecified; I95.9 Hypotension, unspecified; I11.0 Hypertensive heart disease with heart failure; G47.33 Obstructive sleep apnea (adult) (pediatric); M10.9 Gout, unspecified; R65.20 Severe sepsis without septic shock; I27.20 Pulmonary hypertension, unspecified; E66.9 Obesity, unspecified; Z68.29 Body mass index [BMI] 29.0-29.9, adult; I25.10 Atherosclerotic heart disease of native coronary artery without angina pectoris; E11.8 Type 2 diabetes mellitus with unspecified complications; I48.0 Paroxysmal atrial fibrillation; Z88.8 Allergy status to other drugs, medicaments and biological substances; Z85.038 Personal history of other malignant neoplasm of large intestine; Z95.1 Presence of aortocoronary bypass graft; Z85.46 Personal history of malignant neoplasm of prostate; Z90.89 Acquired absence of other organs; Z87.891 Personal history of nicotine dependence; Z79.899 Other long term (current) drug therapy; Z79.01 Long term (current) use of anticoagulants; Z79.4 Long term (current) use of insulin; Z99.81 Dependence on supplemental oxygen; Z92.3 Personal history of irradiation; Z95.2 Presence of prosthetic heart valve
CPT/HCPCS: 0241U; 36415; 71045; 71250; 80053; 80069; 80162; 81001; 82803; 82947; 83605; 83735; 83880; 84145; 84484; 85025; 87040; 87070; 87205; 93005; 93010; 93306; 94640; 94660; 94664; 94760; 94762; 96374; 97110; 97116; 97162; 97166; 97530; 97535; 99285-25; A9270; J0456; J0696; J1650; J1940; J7030; J7040; J7050; J7060

== ENCOUNTER 2022-01-27 09:25 | Inpatient (IN) | payer OTHER, BC ==
[~2022-01-27] VITALS: Ht 172.7 cm; Wt 95.8 kg
[~2022-01-27 09:25] MED LIST changes: +AZIT250 PO; +CEFP200 PO; +FURO20; +METF500
[2022-01-27 10:31] LABS: Albumin, Blood 3.1 g/dL (3.4-5.0); Albumin/Globulin Ratio 1.1 (0.8-1.8); Bilirubin, Total 1.4 mg/dL (0.1-1.0); Bun/Creatinine Ratio 34.1 (12.0-20.0); Creatinine, Blood 0.88 mg/dL (0.60-1.20); Globulin, Blood 2.9 g/dL (2.2-4.0); Potassium, Blood 4.8 mmol/L (3.5-5.5)
[2022-01-27 10:43] LABS: BASOPHILS ABSOLUTE AUTO 0.04 K/mm3 (0.00-0.23); BASOPHILS PERCENT AUTO 0 % (0-2); EOSINOPHILS ABSOLUTE AUTO 0.03 K/mm3 (0.00-0.68); EOSINOPHILS PERCENT AUTO 0 % (0-6); Hematocrit 37.7 % (37.0-53.0); Hemoglobin 11.8 g/dL (13.5-17.5); IMMATURE GRAN ABSOLUTE AUTO 0.16 K/mm3 (0.00-0.10); IMMATURE GRAN PERCENT AUTO 1 % (0-1); LYMPHOCYTES ABSOLUTE AUTO 0.22 K/mm3 (0.84-5.20); LYMPHOCYTES PERCENT AUTO 1 % (21-46); MONOCYTES ABSOLUTE AUTO 1.34 K/mm3 (0.16-1.47); MONOCYTES PERCENT AUTO 7 % (4-13); Mean Corpuscular HGB Conc 31.3 g/dL (31.5-36.5); Mean Corpuscular Volume 90 fL (80-100); NEUTROPHILS ABSOLUTE AUTO 18.01 K/mm3 (1.96-9.15); NEUTROPHILS PERCENT AUTO 91 % (41-73); RDW Standard Deviation 55.4 fL (35.1-46.3); Red Blood Cell Count 4.21 M/mm3 (4.30-5.90)
[2022-01-27 10:45] LABS: Mean Platelet Volume 11.5 fL (9.1-12.4); Platelet Count 166 K/mm3 (150-400)
[2022-01-27 10:55] LABS: Digoxin (Lanoxin) 0.48 ug/mL (0.80-2.00)
[2022-01-27 12:01] LABS: Influenza A, PCR NEGATIVE (NEGATIVE); Influenza B, PCR NEGATIVE (NEGATIVE); Resp Syncytial Virus, PCR NEGATIVE (NEGATIVE); SARS-Cov-2 (COVID-19) PCR, MMC NEGATIVE (NEGATIVE)
--- NOTE | 2022-01-27 17:26 | NUR ---
pt arrived to 303 via gurney, was not able to stand and transfer, too weak, pulled over to bed, had some incont, with briefs around thighs, a/ox3, but forgetful, asked this nurses name four times, a bit [place], is cooperative with care, follows commands but gets distracted, has to be redirected, lungs are very course and wet t/o, has a wet productive cough of green/yellow sputum, currently on 3liters 02 sats 90-92% he is home o2 dependent on 3liters, hrr, tele in place running sr per monitor, see strip, 2-3+ edema noted to b/l le, greater on left than right, pp faint, cap refill <3 sec, vs stable, afebrile, iv site is clear and patent to left wrist, btx4 abd round firm states normal, voids very small amount at a time, with some incont, skin c/w/d, darron anand, oriented to room layout and call system call light in reach.
--- NOTE | 2022-01-28 05:32 | NUR ---
SHIFT SUMMARY PT A&O X3- FORGETFUL AT TIMES- HOME O2 3L- INCREASED TO 4L ON CPAP D/T LOWER O2 SATS- RETURNED O2 TO 3L WITH CANULA RED AREA STILL BLANCHES- APPLIED CALMAZINE AND TURNED [id number] IS FOR PLACEMENT
[2022-01-28 05:47] LABS: BASOPHILS ABSOLUTE AUTO 0.02 K/mm3 (0.00-0.23); BASOPHILS PERCENT AUTO 0 % (0-2); EOSINOPHILS ABSOLUTE AUTO 0.13 K/mm3 (0.00-0.68); EOSINOPHILS PERCENT AUTO 1 % (0-6); Hematocrit 36.8 % (37.0-53.0); Hemoglobin 11.5 g/dL (13.5-17.5); IMMATURE GRAN ABSOLUTE AUTO 0.05 K/mm3 (0.00-0.10); IMMATURE GRAN PERCENT AUTO 0 % (0-1); LYMPHOCYTES ABSOLUTE AUTO 0.65 K/mm3 (0.84-5.20); LYMPHOCYTES PERCENT AUTO 5 % (21-46); MONOCYTES ABSOLUTE AUTO 1.14 K/mm3 (0.16-1.47); MONOCYTES PERCENT AUTO 8 % (4-13); Mean Corpuscular HGB Conc 31.3 g/dL (31.5-36.5); Mean Corpuscular Volume 90 fL (80-100); NEUTROPHILS ABSOLUTE AUTO 11.53 K/mm3 (1.96-9.15); NEUTROPHILS PERCENT AUTO 85 % (41-73); Platelet Count 161 K/mm3 (150-400); RDW Coefficient Variation 17.1 % (11.7-14.2); RDW Standard Deviation 55.6 fL (35.1-46.3); White Blood Cell Count 13.52 K/mm3 (4.00-11.30)
[2022-01-28 06:20] LABS: Bun/Creatinine Ratio 38.8 (12.0-20.0); Calcium, Blood 8.8 mg/dL (8.5-10.1); Creatinine, Blood 0.98 mg/dL (0.60-1.20); Potassium, Blood 4.6 mmol/L (3.5-5.5)
[2022-01-28 10:42] LABS: Source, Urine Foley catheter
[2022-01-28 11:20] LABS: Appearance, Urine Clear (Clear); Bilirubin, Urine Neg (Neg); Blood, Urine Neg (Neg); Color, Urine Yellow (P-Yellow); Glucose Qualitative, Urine Neg (Neg); Ketones, Urine Neg (Neg); Leukocyte Esterase, Urine Neg (Neg); Nitrite, Urine Neg (Neg); Protein, Urine Neg (Neg); Specific Gravity, Urine 1.015 (1.003-1.022); Urobilinogen, Urine 1+ (Normal)
--- NOTE | 2022-01-28 16:46 | NUR ---
SHIFT SUMMARY A/OX4, PLEASANT AND COOPERATIVE WITH CARE. 1P MOD ASSIST WITH FWW AND GB FOR TRANSFERS. CURRENTLY ON 2L VIA NC WITH SATS GREATER THAN 92. GRISSOM PATENT AND DRAINING TO GRAVITY. VSS, NO ACUTE CHANGES AT THIS TIME. BED IN LOWEST POSITION WITH CALL LIGHT IN REACH. WILL CONTINUE TO MONITOR AND REPORT TO ONCOMING RN.
--- NOTE | 2022-01-29 06:05 | NUR ---
SHIFT SUMMARY A&O- PT CONFUSED AT TIMES AND ANXIOUS ABOUT BEING ALONE IN ROOM- PT HAS GRISSOM CATH IN PLACE- DRAINING CLEAR YELLOW URINE- PT CONFUSED AND PULLED OFF CATH SECURE- ENCOURAGED PT TO NOT PULL AT GRISSOM CATH PT UNABLE TO WEAR CPAP IN THE NIGHT- UNABLE TO TOLERATE THE MASK TIGHT AND PT DENIED SHAVING HIS FACE PT O2 SATS WNL ON NC- TURNED PT Q2H
[2022-01-29 07:06] LABS: BASOPHILS ABSOLUTE AUTO 0.03 K/mm3 (0.00-0.23); BASOPHILS PERCENT AUTO 0 % (0-2); EOSINOPHILS ABSOLUTE AUTO 0.16 K/mm3 (0.00-0.68); EOSINOPHILS PERCENT AUTO 2 % (0-6); Hematocrit 37.1 % (37.0-53.0); Hemoglobin 11.3 g/dL (13.5-17.5); IMMATURE GRAN ABSOLUTE AUTO 0.09 K/mm3 (0.00-0.10); IMMATURE GRAN PERCENT AUTO 1 % (0-1); LYMPHOCYTES ABSOLUTE AUTO 0.55 K/mm3 (0.84-5.20); LYMPHOCYTES PERCENT AUTO 5 % (21-46); MONOCYTES ABSOLUTE AUTO 1.01 K/mm3 (0.16-1.47); MONOCYTES PERCENT AUTO 9 % (4-13); Mean Corpuscular HGB 27.8 pg (26.0-34.0); Mean Corpuscular HGB Conc 30.5 g/dL (31.5-36.5); Mean Corpuscular Volume 91 fL (80-100); Mean Platelet Volume 11.3 fL (9.1-12.4); NEUTROPHILS ABSOLUTE AUTO 8.85 K/mm3 (1.96-9.15); NEUTROPHILS PERCENT AUTO 83 % (41-73); Platelet Count 162 K/mm3 (150-400); RDW Coefficient Variation 16.4 % (11.7-14.2); RDW Standard Deviation 55.1 fL (35.1-46.3); Red Blood Cell Count 4.06 M/mm3 (4.30-5.90); White Blood Cell Count 10.69 K/mm3 (4.00-11.30)
[2022-01-29 07:38] LABS: Anion Gap 2 mmol/L (6-16); Blood Urea Nitrogen 34 mg/dL (8-24); Bun/Creatinine Ratio 40.7 (12.0-20.0); CO2, Blood 36 mmol/L (21-32); Calcium, Blood 8.5 mg/dL (8.5-10.1); Chloride, Blood 103 mmol/L (98-108); Creatinine, Blood 0.84 mg/dL (0.60-1.20); Digoxin (Lanoxin) 0.54 ug/mL (0.80-2.00); Glomerular Filtration Rate 89 (60-); Glucose, Blood 90 mg/dL (70-99); Potassium, Blood 4.6 mmol/L (3.5-5.5); Sodium, Blood 141 mmol/L (136-145)
--- NOTE | 2022-01-29 18:40 | NUR ---
END OF SHIFT SUMMARY: PATIENT DENIED PAIN THROUGHOUT THE SHIFT. PATIENT UP TO THE CHAIR, TO THE BATHROOM AND IN THE SHOWER. PATIENT REPORTED FATIGUE AFTER, BUT WORKED WELL WITH OT. PATIENT REPORTS MOTIVATION TO INREASE HIS MOBILIZATION AND STRENGTH. PATIENT ON 3L VIA NC THROUGHOUT THE DAY. PATIENT SPO2 FROM 96-98%. PATIENT DENIED SHORTNESS OF BREATH AT REST. PATIENT HAS A PRODUCTIVE COUGH. PATIENT CONTINUES TO HAVE 3-4+ EDEMA IN BLE. LEGS ELEVATED INTERMITTANTLY WHEN IN BED. PATIENT HAD SOME MILDLY INCREASING CONFUSION THIS EVENING. PATIENT WOULD CALL TO ASK SIMILAR QUESTIONS OR EXPRESS SIMILAR CONCERNS.
--- NOTE | 2022-01-30 04:59 | NUR ---
SHIFT SUMMARY PT A&O TO SELF AND PLACE AT TIMES, PT GETS CONFUSED AND WILL USE CALL LIGHT AND UNABLE TO TELL YOU WHY HE CALLED GRISSOM INSERTED 01/28 - CLEAR YELLOW URINE, PT ON 3L HOME O2- WEARS CPAP T/O NIGHT
[2022-01-30 13:59] LABS: SARS-Cov-2 (COVID-19) PCR, MMC NEGATIVE (NEGATIVE)
--- NOTE | 2022-01-30 16:27 | NUR ---
DAYSHIFT SUMMARY No acute changes to patient status this shift. Patient OOB to chair for all meals, worked with therapy today. Tested for COVID, results negative, patient ready for discharge. Brick Baker assisting with discharge planning, plan is to discharge tomorrow to SNF. Vitals stable, will continue plan of care.
--- NOTE | 2022-01-31 05:42 | NUR ---
Shift Summary PT AOx2-3, tried to sleep with CPAP but O2 monitor kept alarming desat, pt requested NC instead. Pt on 3L, O2 sat stayed > 92%. Pt is 1 assist w/ FWW + GB to [facility]. Plan is to D/C to [facility] today, Covid test was completed by day nurse yestedrday. Jaquez is in for urinary retention, draining yellow urine. VSS, no acute events, pleasant and cooperative with care.
[2022-01-31] MEDS ORDERED: TORSE20 PO (11:16)
[2022-01-31] MEDS ORDERED: ASPI81CH PO (11:17)
[2022-01-31 11:36] LABS: Influenza A, PCR NEGATIVE (NEGATIVE); Influenza B, PCR NEGATIVE (NEGATIVE); Resp Syncytial Virus, PCR NEGATIVE (NEGATIVE); SARS-Cov-2 (COVID-19) PCR, MMC NEGATIVE (NEGATIVE)
--- NOTE | 2022-01-31 14:47 | NUR ---
TELEPHONE REPORT GIVEN TO TIMOTHY AVENDANO AT [facility]. TRANSPORT PENDING.
--- NOTE | 2022-01-31 15:02 | NUR ---
PATIENT DISCHARGED TO [facility] FOR RE[facility]. PATIENT D/C'D WITH JACIEL PER DR. FRANCO, ON O2 @ 3 L/MIN NC. IV SALINE LOCK REMOVED WITHOUT INCIDENT. PATIENT DRESSED IN OWN JEANS, SOCKS, AND BOOTS, BUT HAD NO SHIRT SO DISPOSABLE SCRUB TOP GIVEN. OFF UNIT VIA W/C WITH [facility] AT 1500. NO PERSONAL BELONGINGS LEFT BEHIND IN ROOM.
== END 2022-01-31 14:59 | DRG 291 ==
LOC: ER 09:25 → MEDS 13:14 → ERHOLD 13:14 → MEDS 16:31
PROVIDERS: Internal Medicine; Physician Assistant; ADMIT Internal Medicine
PROC: 5A09357 Assistance with Respiratory Ventilation, Less than 24 Consecutive Hours, Continuous Positive Airway Pressure (ICD-10-PCS; principal; 2022-01-28)
DX: I11.0 Hypertensive heart disease with heart failure (principal); I50.33 Acute on chronic diastolic (congestive) heart failure; J96.21 Acute and chronic respiratory failure with hypoxia; J96.22 Acute and chronic respiratory failure with hypercapnia; N13.8 Other obstructive and reflux uropathy; I48.20 Chronic atrial fibrillation, unspecified; J44.1 Chronic obstructive pulmonary disease with (acute) exacerbation; I27.20 Pulmonary hypertension, unspecified; N40.1 Benign prostatic hyperplasia with lower urinary tract symptoms; I25.10 Atherosclerotic heart disease of native coronary artery without angina pectoris; Z66 Do not resuscitate; G47.33 Obstructive sleep apnea (adult) (pediatric); E66.9 Obesity, unspecified; M19.90 Unspecified osteoarthritis, unspecified site; E11.9 Type 2 diabetes mellitus without complications; M10.9 Gout, unspecified; Z20.822 Contact with and (suspected) exposure to COVID-19; I35.0 Nonrheumatic aortic (valve) stenosis; W19.XXXA Unspecified fall, initial encounter; Z99.81 Dependence on supplemental oxygen; Z95.1 Presence of aortocoronary bypass graft; Z85.46 Personal history of malignant neoplasm of prostate; Z95.4 Presence of other heart-valve replacement; Z86.79 Personal history of other diseases of the circulatory system; Z88.8 Allergy status to other drugs, medicaments and biological substances; Z79.52 Long term (current) use of systemic steroids; Z79.899 Other long term (current) drug therapy; Z79.811 Long term (current) use of aromatase inhibitors; Z79.2 Long term (current) use of antibiotics; Z85.038 Personal history of other malignant neoplasm of large intestine; Z98.890 Other specified postprocedural states; Z90.49 Acquired absence of other specified parts of digestive tract; Z68.30 Body mass index [BMI] 30.0-30.9, adult; Z87.891 Personal history of nicotine dependence; Z79.01 Long term (current) use of anticoagulants
CPT/HCPCS: 0241U; 36415; 71046; 80048; 80053; 80162; 81003; 82947; 83605; 83880; 84145; 84484; 85025; 87040; 87070; 87205; 93005; 93010; 94640; 94660; 94664; 94762; 96365; 96367; 96375; 97110; 97116; 97129; 97161; 97166; 97530; 97535; 99285-25; A9270; J0696; J1940; J7030; U0004

== ENCOUNTER 2022-02-05 04:32 | Inpatient (IN) | payer OTHER, BC ==
[~2022-02-05] VITALS: Ht 175.3 cm; Wt 91.5 kg
[~2022-02-05 04:32] MED LIST changes: +ASPI81CH PO; +TORSE20 PO
[2022-02-05 04:53] LABS: BASOPHILS ABSOLUTE AUTO 0.05 K/mm3 (0.00-0.23); BASOPHILS PERCENT AUTO 0 % (0-2); EOSINOPHILS ABSOLUTE AUTO 0.22 K/mm3 (0.00-0.68); EOSINOPHILS PERCENT AUTO 2 % (0-6); Hemoglobin 12.7 g/dL (13.5-17.5); IMMATURE GRAN PERCENT AUTO 2 % (0-1); LYMPHOCYTES ABSOLUTE AUTO 0.91 K/mm3 (0.84-5.20); LYMPHOCYTES PERCENT AUTO 7 % (21-46); MONOCYTES ABSOLUTE AUTO 1.06 K/mm3 (0.16-1.47); MONOCYTES PERCENT AUTO 8 % (4-13); Mean Corpuscular HGB 27.9 pg (26.0-34.0); Mean Corpuscular Volume 90 fL (80-100); Mean Platelet Volume 10.4 fL (9.1-12.4); NEUTROPHILS PERCENT AUTO 81 % (41-73); Platelet Count 227 K/mm3 (150-400); RDW Coefficient Variation 16.3 % (11.7-14.2); RDW Standard Deviation 53.5 fL (35.1-46.3); Red Blood Cell Count 4.56 M/mm3 (4.30-5.90); White Blood Cell Count 12.64 K/mm3 (4.00-11.30)
[2022-02-05 05:37] LABS: Digoxin (Lanoxin) 0.51 ug/mL (0.80-2.00)
[2022-02-05 05:54] LABS: Alanine Aminotransfer (ALT/SGP 26 U/L (12-78); Albumin, Blood 3.2 g/dL (3.4-5.0); Albumin/Globulin Ratio 0.8 (0.8-1.8); Alk Phos 78 U/L (50-136); Anion Gap Unable to Calculate mmol/L (6-16); Aspartate Aminotrans (AST/SGOT 20 U/L (12-37); Bilirubin, Total 0.7 mg/dL (0.1-1.0); Blood Urea Nitrogen 37 mg/dL (8-24); Bun/Creatinine Ratio 48.8 (12.0-20.0); CO2, Blood 42 mmol/L (21-32); Calcium, Blood 9.4 mg/dL (8.5-10.1); Chloride, Blood 100 mmol/L (98-108); Creatinine, Blood 0.76 mg/dL (0.60-1.20); Globulin, Blood 3.8 g/dL (2.2-4.0); Glomerular Filtration Rate 91 (60-); Glucose, Blood 122 mg/dL (70-99); Sodium, Blood 141 mmol/L (136-145)
--- NOTE | 2022-02-05 07:18 | NUR ---
Pt is in room, wearing bipap 16/8 35% FiO2 setting. Sitting up, dentures in cup at bedside. Pt is concerned about his glasses. [facility] and [facility] nurse Tiffanie who checked and his glasses are still in his room. She also said that the patient got his flu shot on 01/03/22 at the Rehab center.
[2022-02-05] MEDS ORDERED: SENN187 PO (08:17)
[2022-02-05] MEDS ORDERED: MIRALAX17 GM PO (08:17)
[2022-02-05] MEDS ORDERED: GUAIFENESIN ER600 MG PO (08:19)
[2022-02-05] MEDS ORDERED: ALBU90OI INH (08:20)
[2022-02-05] MEDS ORDERED: ALBU2.5V5 INH (08:22)
--- NOTE | 2022-02-05 08:41 | NUR ---
Brief break from the bipap to take oral meds. Pt attempted to have BM on bedpan, and could not. STates that he has not had a BM for 3-4 days. RR 27-32/min, on 4 l/min O2 by n.c. delivery, spo2 98%. Heart rate 86/minute. Lungs are very diminished and coarse throughout. Pt is sitting up, frequently coughing up very thick, small amounts of yellowish white sputum. Voice is weak and he able to speak 2-3 words in between labored breaths. Respirations are shallow, and he is breathing with his mouth open. Difficult to understand his speech due to weak voice.
--- NOTE | 2022-02-05 09:01 | NUR ---
Michael Lyles and Marlon Wolfe rounded on the pt in the past few minutes. Pt was taking a brief break off the bipap. RR 35/min. Requested bowel care for the pt.
--- NOTE | 2022-02-05 10:48 | NUR ---
Joint visit with this PC RN, [facility] MICHELLE Rowan, and PC RN Lilian at Pt's bedside. Engaged in therapeutic conversation regarding goals of care. Gentle education on disease process including trajectory. Discussed options includingg considering hospice. Educated on hospice philosophy with V/U made by Pt. Pt is agreeable to go back to [facility] with hospice services. WASTE RECYCLER Anum discusses agencies to choose from with Pt requesting [facility]. Pt signs POLST and signed by WASTE RECYCLER Anum. Called and spoke with Pt's daughter Rayna via speaker phone. This PC RN and WASTE RECYCLER Anum answers Rayna's questions. Rayna is also agreeable with plan. Spoke with Dr Wolfe and discussed case. Dr Wolfe is also agreeable. Placed order for Roxanol 5-10mg SL Q 3 hours PRN and changed Pt's code status to DNR per V/O from Dr Wolfe. Spoke with JUAN ALBERTO Beatty and discussed case. Spoke with Primary RN Samara and discussed case. Palliative Care will remain available.
--- NOTE | 2022-02-05 11:07 | NUR ---
Pt is on and off the bipap, as tolerated and as his needs permit. Still unable to have BM ; will initiate ordered bowel care.
--- NOTE | 2022-02-05 12:05 | NUR ---
After one 5 mg dose of Roxonol, pt is sitting up in bed, eating lunch and respiratory rate is 17-24, SP02 93% on 2 l/min n.c. delivery, HR 97 bpm and he appears much less anxious, and without dyspnea.
--- NOTE | 2022-02-05 12:42 | NUR ---
ATtempted to use bed yeager, unsuccessfully. Applied eggcrate mattress to bed and repositioned the pt to his left side, with pillows elevating his legs to keep heels from touching the bed. He states comfortable. Pt is frequently coughing up yellow to white sputum and evacuating it from his mouth with Yankaur by himself.
--- NOTE | 2022-02-05 15:17 | NUR ---
Assisted up to BSC to have BM. 1-2 person transfer to stand and pivot to BS, using geriwalker and gait belt. Pt tolerated very well. Able only to have one small firm brown pellet stool. Assisted back to bed. Pt denies pain, states that he has small amount of anxiety about not having a BM yet. Reassured him that the medication will eventually take effect, and he will be able to.
--- NOTE | 2022-02-05 16:08 | NUR ---
Assisted up to BSC one person moderate assist with gait belt and geriwalker. He tolerated it well. Had large formed brown stool. Partial bath completed while he was up on the commode chair. Assisted back to bed after placing pull up on him. Helped to attempt phone call to his daughter, but the line is busy. He is lying on bed with eggcrate mattress underneath him, lying on his right side with pillows around him for comfort. He is starting to exhibit the type of confusion and forgetfulness which he displayed early this morning. LUng sounds remain coarse rhonchi and diminished.
--- NOTE | 2022-02-06 04:38 | NUR ---
SHIFT SUMMARY: PT REMAINS ALERT AND ORIENTED X3, ABLE TO FOLLOW COMMANDS AND MAKE NEEDS KNOWN. MILDLY FORGETFUL. BP STABLE. HR AFIB 60'S. AFEBRILE. SATING >95% ON 2L NC. LUNG SOUNDS WET AND COARSE THROUGHOUT, PT COUGHING UP THICK GREEN SECRETIONS. ABLE TO SELF SUCTION. RESPIRATIONS EVEN AND UNLABORED AT REST, SHORT OF BREATH WITH ACTIVITY. RADIAL PULSES STRONG, PEDAL PULSES FAINT. +2 EDEMA IN BLE. GRISSOM CATH IN PLACE DRAINING DARK YELLOW/RED URINE TO GRAVITY. APPROX 1900 ML OF OUTPUT THIS SHIFT. ONE SMALL BM. PT WAS ABLE TO GET UP WITH ONE PERSON ASSIST TO BSC. BED IN LOW, ALARM ON, CALL LIGHT IN REACH. WILL REPORT TO ONCOMING RN.
[2022-02-06 04:55] LABS: Anion Gap Unable to Calculate mmol/L (6-16); Blood Urea Nitrogen 42 mg/dL (8-24); Bun/Creatinine Ratio 53.8 (12.0-20.0); CO2, Blood >45 mmol/L (21-32); Chloride, Blood 96 mmol/L (98-108); Creatinine, Blood 0.78 mg/dL (0.60-1.20); Glomerular Filtration Rate 91 (60-); Glucose, Blood 96 mg/dL (70-99); Potassium, Blood 4.7 mmol/L (3.5-5.5); Sodium, Blood 142 mmol/L (136-145)
[2022-02-06 10:59] LABS: SARS-Cov-2 (COVID-19) PCR, MMC NEGATIVE (NEGATIVE)
--- NOTE | 2022-02-06 11:26 | NUR ---
report to receiving facility: Telephone report given to Akira receiving nurse at [facility]. covid swab negative; pt will be returning to his old room 22.
== END 2022-02-06 12:13 | disposition hospice, inpatient (51) | DRG 291 ==
LOC: ER 04:32 → PCU 05:52
PROVIDERS: Emergency Medicine; Student in an Organized Health Care Education/Training Program; ADMIT Internal Medicine
PROC: 5A09357 Assistance with Respiratory Ventilation, Less than 24 Consecutive Hours, Continuous Positive Airway Pressure (ICD-10-PCS; principal; 2022-02-05)
DX: I11.0 Hypertensive heart disease with heart failure (principal); G92.8 Other toxic encephalopathy; I50.33 Acute on chronic diastolic (congestive) heart failure; J96.21 Acute and chronic respiratory failure with hypoxia; I25.10 Atherosclerotic heart disease of native coronary artery without angina pectoris; Z51.5 Encounter for palliative care; Z66 Do not resuscitate; Z20.822 Contact with and (suspected) exposure to COVID-19; G47.33 Obstructive sleep apnea (adult) (pediatric); I48.91 Unspecified atrial fibrillation; E66.9 Obesity, unspecified; E11.9 Type 2 diabetes mellitus without complications; N40.0 Benign prostatic hyperplasia without lower urinary tract symptoms; D72.828 Other elevated white blood cell count; M19.90 Unspecified osteoarthritis, unspecified site; I35.0 Nonrheumatic aortic (valve) stenosis; Z68.32 Body mass index [BMI] 32.0-32.9, adult; Z99.81 Dependence on supplemental oxygen; Z87.891 Personal history of nicotine dependence; Z85.46 Personal history of malignant neoplasm of prostate; Z99.89 Dependence on other enabling machines and devices; Z95.1 Presence of aortocoronary bypass graft; Z95.4 Presence of other heart-valve replacement; Z90.49 Acquired absence of other specified parts of digestive tract; Z90.89 Acquired absence of other organs; Z88.8 Allergy status to other drugs, medicaments and biological substances; Z79.82 Long term (current) use of aspirin; Z79.899 Other long term (current) drug therapy
CPT/HCPCS: 36415; 71045; 80048; 80053; 80162; 82947; 83880; 84484; 85025; 93005; 93010; 94640; 94660; 94664; 94762; 96374; 99285-25; A9270; J1940; U0004